=== PATIENT | female | born 1995 | race Caucasian/White ===

== ENCOUNTER 2018-08-15 10:26 | Emergency (ER) | payer OTHER ==
[~2018-08-15] VITALS: Ht 162.6 cm; Wt 68.0 kg
[2018-08-15] MEDS ORDERED: AMOXICILLIN500 MG PO (12:06)
[2018-08-15] MEDS ORDERED: ULTRAM50 MG PO (12:06)
== END 2018-08-15 12:24 | disposition home or self-care (01) ==
LOC: ED 10:26
DX: H66.91 Otitis media, unspecified, right ear (principal); Z00.8 Encounter for other general examination
CPT/HCPCS: 99282